=== PATIENT | female | born 1995 | race Caucasian/White ===

== ENCOUNTER 2024-02-20 02:36 | Emergency (ER) | payer MEDICAID, OTHER ==
[~2024-02-20] VITALS: Ht 157.5 cm; Wt 82.0 kg
[2024-02-20 02:43] VITALS: O2SAT 97
[2024-02-20 02:45] VITALS: TEMP 37.50300
[2024-02-20] MEDS: SODIUM CHLORIDE 0.9% 1,000 ML IV ONE (03:45)
[2024-02-20] MEDS: KETOROLAC 30MG/ML VIAL IV STA (03:48)
[2024-02-20 03:59] LABS: CHLORIDE 102 mEq/L (98-107); POTASSIUM 3.5 mEq/L (3.5-5.1); SODIUM 137 mEq/L (136-145)
[2024-02-20 04:00] LABS: CARBON DIOXIDE 27 mEq/L (21-32)
[2024-02-20] MEDS: AMPICILLIN SOD/SULBACTAM NA 3 G in SODIUM CHLORIDE 0.9% 100 ML IV SCH (04:04)
[2024-02-20 04:05] LABS: GLUCOSE 107 mg/dL (70-105); UREA NITROGEN BLOOD 12 mg/dL (9-23)
[2024-02-20 04:31] LABS: HCG SCREEN NEGATIVE
[2024-02-20 06:33] LABS: BASOPHILS % 0.4 % (0.0-2.0); HEMATOCRIT. 36.3 % (36.0-48.0); LYMPHOCYTES % 14.9 % (20.0-50.0); MEAN CORPUSCULAR HEMOGLOBIN 29.2 pg (28.0-32.0); MEAN CORPUSCULAR VOLUME 88.5 fL (81.0-99.0); MEAN PLATELET VOLUME 8.5 fl (7.4-10.4); MONOCYTES % 11.3 % (2.0-8.0); NEUTROPHILS % 73.4 % (40.0-76.0); PLATELET 259 x1000/uL (130-400); RED BLOOD CELL COUNT 4.11 mill/uL (4.2-5.4); RED CELL DISTRIBUTION WIDTH 14.4 % (11.6-14.6); WHITE BLOOD COUNT 7.6 x1000/uL (4.5-11.0)
[2024-02-20] MEDS ORDERED: AMOX1TAB16 MT (06:52)
[2024-02-20 06:55] VITALS: BP 103/61; PULSE 89; RESP 22; O2SAT 99
== END 2024-02-20 07:02 | disposition home or self-care (01) ==
LOC: ER 02:47
DX: J02.9 Acute pharyngitis, unspecified (principal); Z98.890 Other specified postprocedural states
CPT/HCPCS: 99284; 96365; 96375; 80048; 84703; 85025; 85610; 36415; J0295; J1885; J7050; J7030